=== PATIENT | male | born 1975 | race African-American/Black ===

== ENCOUNTER 2022-09-09 10:16 | Emergency (ER) | payer SELFPAY ==
[~2022-09-09] VITALS: Ht 182.9 cm; Wt 78.0 kg
[2022-09-09 11:44] LABS: Basophils # (auto) 0.1 10 ^3/uL (0-0.2); Basophils % (auto) 0.9 % (0.0-2.0); Eosinophils # (auto) 0.3 10 ^3/uL (0-0.8); Eosinophils % (auto) 3.2 % (0.0-7.0); Hematocrit 48.7 % (41.0-53.0); Hemoglobin 17.1 g/dL (13.5-17.5); Lymphocytes # (auto) 2.9 10 ^3/uL (0.4-5.4); Lymphocytes % (auto) 28.2 % (10.0-50.0); Mean Corpuscular Hemoglobin 30.5 pg (28.0-32.0); Mean Corpuscular Hgb Conc. 35.1 g/dL (32.0-36.0); Mean Corpuscular Volume 86.9 fL (80.0-100.0); Monocytes # (auto) 0.7 10 ^3/uL (0-1.3); Monocytes % (auto) 6.6 % (0.0-12.0); Neutrophils # (auto) 6.2 10 ^3/uL (1.6-8.6); Neutrophils % (auto) 61.1 % (37.0-80.0); Nucleated Red Blood Cells % 0.2 %; Red Cell Distribution Width 14.7 % (11.8-14.3); White Blood Cell 10.2 10^3/uL (4.4-10.8)
[2022-09-09 11:45] LABS: Albumin 3.8 g/dL (3.4-5.0); Calcium 9.5 mg/dL (8.5-10.1); Potassium 4.2 mmol/L (3.5-5.1)
[2022-09-09 11:46] LABS: Urine Bacteria NONE SEEN /hpf (None Seen); Urine Blood Negative /uL (Negative); Urine WBC <1 /hpf (0 - 3)
[2022-09-09 11:48] LABS: BUN/Creatinine Ratio 14.3 (10.0-20.0); Bilirubin, Total 0.4 mg/dL (0.2-1.0); CRP High Sensitivity 0.07 mg/dL (< 0.3); Total Protein 7.3 g/dL (6.4-8.2)
[2022-09-09] MEDS ORDERED: IOHEXOL 300 MG/ML 100ML BOTTLE IJ ONE (12:29)
[2022-09-09] MEDS ORDERED: CLINDAMYCIN 900MG IV 50 ML IV ONE (14:15)
[2022-09-09] MEDS ORDERED: SODIUM CHLORIDE 0.9% 1,000 ML IV ONE (15:15)
[2022-09-09] MEDS ORDERED: PIPERACILLIN-TAZO 4.5GM 100 ML IV ONE (15:15)
[2022-09-09] MEDS ORDERED: AUG875T PO (15:32)
[2022-09-09] MEDS ORDERED: CEPH-510 PO (15:34)
[2022-09-09 16:08] VITALS: BP 145/97
== END 2022-09-09 17:42 | disposition home or self-care (01) ==
LOC: ER 10:16
DX: L02.31 Cutaneous abscess of buttock (principal); M79.661 Pain in right lower leg; Z98.890 Other specified postprocedural states
CPT/HCPCS: 36415; 72193; 80053; 81001; 83605; 84484; 85025; 85379; 85652; 86141; 87040; 93971; 96365; 99285; J2543; J7030; Q9967